=== PATIENT | male | born 1945 | race Caucasian/White ===

== ENCOUNTER → 2021-12-19 08:56 | Outpatient (BNVA) | payer BC, SELFPAY | PROVIDERS: PCP Family Medicine Adult Medicine; Visit Provider Family Medicine Adult Medicine | DX: N40.0 Benign prostatic hyperplasia without lower urinary tract symptoms (principal); R05.3 Chronic cough; R91.1 Solitary pulmonary nodule; N41.1 Chronic prostatitis; R31.9 Hematuria, unspecified; E29.1 Testicular hypofunction | CPT/HCPCS: 80053; 84153; 84403; 84443; 85025 ==

== ENCOUNTER 2022-02-20 12:48 | Outpatient (CLI) | payer BC, SELFPAY ==
--- NOTE | 2022-02-20 13:00 | CT_ITS ---
WS: [id number] CT CHEST WITH INTRAVENOUS CONTRAST HISTORY: History of RIGHT middle lobe atelectasis and pulmonary nodules. TECHNIQUE: Contiguous 5 mm axial imaging performed on the thorax. Coronal and sagittal reformats are submitted. All CT scans at [facility] use at least one of these dose optimization techniques: automated exposure control; mA and/or kV adjustment per patient size (includes targeted exams where dose is matched to clinical indication); or iterative reconstruction. CONTRAST: Omnipaque 350; 95 mL IV. DLP: 577.39 mGy.cm COMPARISON: None available. Prior outside imaging was requested. Lungs and central airway: Lungs are hyperinflated. Bilateral scattered opacifications. Opacifications are greatest throughout the RIGHT lung. Atelectasis with bronchiectasis medial RIGHT middle lobe and at the lingula. There are additional areas of tree-in-bud airspace disease and groundglass opacifica tions. There is no well formed solid mass. Pleural-based wedge-shaped opacification posterior RIGHT u pper lobe may be from a prior infarct. Pleura: Normal. No pleural effusion. Heart and pericardium: Heart is enlarged. No pericardial effusion. Mediastinum and jennifer: Indeterminate RIGHT suprahilar lymph node or cluster of lymph nodes measures 18 x 19 mm. There are additional smaller hilar lymph nodes. Vessels: Normal size aorta. No filling defects in the central pulmonary artery. Chest wall and lower neck: No soft tissue masses. Upper abdomen: No adrenal mass. Visualized liver is negative. Osseous structures: No destructive process. CT/CT chest w con* [id number] IMPRESSION: 1. Bilateral pulmonary opacifications. Probably all postinflammatory. Comparis on with prior outside imaging would be helpful to evaluate for progression or i mprovement. Bronchiectasis with atelectasis RIGHT middle lobe and lingula. 2. Mildly prominent RIGHT suprahilar lymph node or lymph node group measures 1 8 x 19 mm. 3. Emphysema, chronic. 4. Recommendation: Follow-up chest CT with IV contrast in 3 months. This inter suman follow-up may change if the outside imaging becomes available for review.
[2022-02-20 13:25] LABS: Blood Urea Nitrogen 19 mg/dL (8-23)
[2022-02-20] MEDS: iohexol 350 mg/mL 500 mL Btl (per mL) IV (13:30)
== END 2022-02-20 12:49 | disposition home or self-care (01) ==
LOC: RAD 12:50
PROVIDERS: PCP Family Medicine Adult Medicine; Visit Provider Family Medicine Adult Medicine
DX: R91.1 Solitary pulmonary nodule (principal); J43.9 Emphysema, unspecified; J98.11 Atelectasis
CPT/HCPCS: 71260; 82565; 84520; Q9967

== ENCOUNTER → 2022-03-28 10:33 | Outpatient (BNVA) | payer BC, SELFPAY | PROVIDERS: PCP Family Medicine Adult Medicine; Visit Provider Family Medicine Adult Medicine | DX: E03.9 Hypothyroidism, unspecified (principal) | CPT/HCPCS: 84443 ==

== ENCOUNTER 2022-04-01 10:17 | Outpatient (CLI) | payer BC, SELFPAY | END 2022-04-01 10:18 | disposition home or self-care (01) | LOC: LAB 10:19 | PROVIDERS: PCP Family Medicine Adult Medicine; Visit Provider Internal Medicine Pulmonary Disease | DX: J47.9 Bronchiectasis, uncomplicated (principal) | CPT/HCPCS: 87015; 87116; 87206; 87801 ==

== ENCOUNTER → 2022-06-27 10:30 | Outpatient (BNVA) | payer BC, SELFPAY | PROVIDERS: PCP Family Medicine Adult Medicine; Visit Provider Internal Medicine Pulmonary Disease | DX: J47.9 Bronchiectasis, uncomplicated (principal); R06.02 Shortness of breath | CPT/HCPCS: 36415; 80053; 82784; 82785; 85025; 86003; 86038; 86200; 86431; 86480 ==

== ENCOUNTER 2022-07-05 10:47 | Outpatient (CLI) | payer BC, SELFPAY ==
--- NOTE | 2022-07-05 11:00 | CT_ITS ---
WS: [id number] CT chest wo con [id number] REASON FOR EXAM: Bronchiectasis IV CONTRAST ADMINISTERED: None. TOTAL EXAM DLP: 185.[address] scans at [facility] use at least one of these dose optimization techniques: automat ed exposure control; mA and/or kV adjustment per patient size (includes targeted exams where dose is matched to clinical indication); or iterative reconstruction. FINDINGS: Atelectasis and bronchiectasis in the right middle lobe and within the lingular segment of the left l myke. The abnormality in the right middle lobe is relatively unchanged compared to 02/20/2022. On the left there is now an area of airspace consolidation in the extreme anterior medial aspect of t he left lung containing air bronchograms. There has also been, in the interim since 02/20/2022, some resolution of previously identified lung o pacities in the posterior upper lobes most notably on the right. Some residual abnormality remains. Without contrast reevaluation of the previously described right hilar and mediastinal adenopathy is s omewhat difficult but as best as can be ascertained the adenopathy is unchanged in volume. Multiple other chronic pulmonary parenchymal changes appear stable in both lungs. No other significant interval change or new finding. CT/CT chest wo con [id number] IMPRESSION: Stable bronchiectasis and atelectasis in the right middle lobe. New area of airspace consolidation in the mid extreme anterior medial left lung . Partial resolution of pulmonary opacities in the posterior upper lobes.
== END 2022-07-05 10:48 | disposition home or self-care (01) ==
PROVIDERS: PCP Family Medicine Adult Medicine; Visit Provider Internal Medicine Pulmonary Disease
DX: J47.9 Bronchiectasis, uncomplicated (principal)
CPT/HCPCS: 71250

== ENCOUNTER 2022-07-09 05:44 | Day surgery (SDC) | payer BC, SELFPAY ==
[2022-07-05 09:42] VITALS: BMI 20.2
[2022-07-09] VITALS (7 sets, daily range): BP systolic 111–129; BP diastolic 54–83; PULSE 67–85; RESP 16–18; TEMP 36.1–36.2; O2SAT 91–97
[2022-07-09] MEDS: sodium chloride 0.9% 1,000 ML 30 ML IV (06:16)
--- NOTE | 2022-07-09 06:56 | P.HPUD_ITS ---
Surgery/Procedure H&P Update DATE OF PROCEDURE: July 09, 2022 DATE H&P PERFORMED: 06/27/22 H&P UPDATE INFORMATION: I have reviewed H&P completed within last 30 days, I have examined patient prior to procedure and No changes to prior documentation PRIMARY INDICATION FOR PROCEDURE: Patient had follow-up CT chest 07/05/2022-which showed stable bronchiectasis under the ectasis in the right middle lobe. New area of airspace consolidation in mid extreme anterior medial left lung. Partial resolution of pulmonary opacities in posterior upper lobes. Probably unchanged right hilar and mediastinal adenopathy PLANNED PROCEDURE: Operation Date: 07/09/22 07:00 Proposed Procedures p Bronchoscopy/Ebus 12439, 68205, 76613, 86861, 99187, 56940, 81129, 31756, 31 645, 92117, 29271, 46518, 80168,J47.9,R91.1(Not Applicable) - Johny Albrecht MD s Ebus(Not Applicable) - Johny Albrecht MD
--- NOTE | 2022-07-09 06:59 | ANES.PREANE2 ---
Pre-Anesthetic Assessment Height/Weight: Height 1.75 m Weight 62.142 kg Temp Pulse Resp BP Pulse Ox O2 Del Method 97.0 F L 67 16 128/83 97 Room Air 07/09/22 06:02 07/09/22 06:02 07/09/22 06:02 07/09/22 06:02 07/09/22 06:02 07/09/22 06:02 Operation Date: 07/09/22 07:00 Proposed Procedures p Bronchoscopy/Ebus 22662, 93188, 67325, 05191, 60196, 13887, 65826, 93324, 08452, 17364, 70488, 67952, 62920,J47.9,R91.1(Not Applicable) - Johny Albrecht MD s Ebus(Not Applicable) - Johny Albrecht MD Familial anesthetic complications: none Was Beta Brianna taken within 24 hours: N/A Was Clonidine taken within 24 hours: N/A Last intake: Intake Last Liquid Date 07/08/22 Last Liquid Time 19:00 Last Solid Date 07/08/22 Last Solid Time 13:00 Social No alcohol and No tobacco Exam alert, oriented x 3, clear to auscultation bilaterally and regular rate & rhythm Airway Submandibular: within normal limits Cervical ROM: within normal limits Mallampati: Class I Dentition: full Pulmonary Chronic Obstructive Pulmonary Disease pulmonary nodule CV/HEM None reported None reported Hepatic None reported GI Gastroesophageal Reflux Disease controlled Metabolic None reported Musc/skel Lower Back Pain lumbar issues Neuropsych None reported Anesthetic Plan ASA status: 3 Anesthesia: General Risk of > 500 ml blood loss (7ml/kg in children): No Medications/Allergies Home Medications Medication Instructions Recorded Confirmed Last Taken Type biotin 1 tab PO DAILY 09/20/21 07/09/22 07/08/22 History cholecalciferol (vitamin D3) 1 tab PO DAILY 09/20/21 07/09/22 07/08/22 History eye health vitamins 1 tab PO BID 09/20/21 07/09/22 07/08/22 History multivitamin (Daily Multi-Vitamin 1 tab PO DAILY 09/20/21 07/09/22 07/08/22 History tablet) Allergies Allergy/AdvReac Type Severity Reaction Status Date / Time No Known Allergies Allergy Verified 07/09/22 06:00 Current Medications Generic Name Dose Route Start Last Admin Trade Name Freq PRN Reason Stop Dose Admin Sodium Chloride 1,000 mls @ 30 mls/hr 07/09/22 06:00 07/09/22 06:16 Sodium Chloride 0.9% IV 07/10/22 05:59 30 mls/hr .Q24H SUJIT Administration PFSH Anesthesia Medical History BPH (benign prostatic hyperplasia) now [facility], [place], Dx prostatic cancer 09/19/2018 but then changed to BPH, all biopsies negative. BPH loc w urin obs/LUTS now [facility], [place], Dx prostatic cancer 09/19/2018 but then changed to BPH, all biopsies negative. Carcinoma in situ of prostate Initial elevated PSA 2011 and an 05/2017 biopsy positive for prostate cancer after PSA elevation again, [place], [place] Chronic cough Chronic prostatitis with hematuria now [facility], [place], Dx prostatic cancer 09/19/2018 but then changed to BPH, all biopsies negative. Chronic rhinitis COPD mixed type Osteoarthritis involving multiple joints on both sides of body Pulmonary nodule on CT 01/2021 Dr. Paez order to repeat Chest CT on 05/22/2021. Right middle lobe with atelectasis and bronchial gram and radiographic findings compatible with mycobacteria AVM complex as well as a 15 mm right hilar node and some scheduled nodules up to 6 mm. Testicular hypogonadism Family History Sister Chronic kidney disease (CKD) Hyperlipidemia Mother Cancer colon Hyperlipidemia Stroke mini strokes Denies family history of Diabetes CAD (coronary artery disease) Clotting disorder Dementia Anesthesia complication Bleeding disorder Lung disease Hypertension Social History Smoking and tobacco status: former smoker Quit status (tobacco): has quit using tobacco Year quit tobacco: 1969 Former quit date comment: 1 ppd X 4 years Smoking risk assessment/counseling performed?: No Alcohol intake: never Desire information about alcohol rehabilitation?: No Counseling given: No Substance/Drug Use: never Desire information about substance/drug rehabilitation?: No Counseling given: No Adopted: No Caregiver/support person: No Lives independently: Yes Marital status: service: No Current occupational status: retired Do you think of yourself as: Straight/Heterosexual Current gender identity: Male Data Anesthesia Cardiac Studies: No Data to Display
[2022-07-09] MEDS: lidocaine 1% INJ 20 mL 10 ML XX (07:25)
--- NOTE | 2022-07-09 08:38 | PM.OP ---
Operative Report Date of procedure: July 09, 2022 Pre-op diagnosis: Bronchiectasis with hilar adenopathy Procedure done: 40642 Dx Bronchoscope w/BAL 03775 Bronchoscopy w/ therapeutic aspiration of the tracheobronchial tree (clearance of airway secretions, removal of mucus plugs) 95210 EBUS Sampling 1 or 2 nodes Surgeon: Johny Albrecht MD, [facility] Brief History: 76-year-old male presented with chronic cough to the clinic. CT evidence of significant right middle lobe bronchiectasis and airspace consolidation in mid extreme anterior medial left lung. Sputum cultures did not grow any atypical mycobacteria Today scheduled for bronchoscopic evaluation, obtaining BAL from bronchiectatic areas to send for cultures, endoscopic biopsy of hilar/mediastinal lymphadenopathy Procedure: 50074 Dx Bronchoscope w/BAL 69517 Bronchoscopy w/ therapeutic aspiration of the tracheobronchial tree (clearance of airway secretions, removal of mucus plugs) 70702 EBUS Sampling 1 or 2 nodes 55269 Diagnostic EBUS Indication: CT chest 07/05/2022-which showed stable bronchiectasis in the right middle lobe.? New area of airspace consolidation in mid extreme anterior medial left lung.? Partial resolution of pulmonary opacities in posterior upper lobes.There is also prominent right suprahilar lymph node or lymph node group measuring 18 x 19 mm.? Description of the procedure: The procedure was explained to the patient and the consent was obtained. The patient was brought to the OR. The patient underwent induction for general anesthesia and endotracheal tube was placed Anesthesia: General anesthesia. Local anesthesia: The elizabeth in the right and left mainstem bronchi were anesthetized with 1% lidocaine, 3 mL. The bronchoscope was advanced through the ET tube. The distal trachea was visualized. Tracheal mucosa appeared normal, no endotracheal lesion was seen. The elizabeth was sharp. 1 mL each of 1% lidocaine was instilled in the trachea the right and left mainstem bronchi for local anesthesia. In a systematic manner bilateral bronchial tree was then examined. The bronchoscope was then introduced into the right mainstem bronchus. The right upper lobe, right middle lobe and right lower lobe bronchi were examined up to the third subsegmental level and no abnormalities were identified. There was anatomic variance in the right upper lobe as well as right lower lobe segments. The mucosa appeared normal with no endobronchial lesions or active bleeding. There were significant thick mucus globs noted in bronchus intermedius and at the entrance of right middle lobe. There were suctioned right away ( 20700) The bronchoscope was advanced into the left mainstem bronchus. The mucosa appeared normal with no endobronchial lesions. The left upper lobe, and lingula were examined up to the third subsegmental level and no abnormalities were identified. Mucosa of left upper lobe and lingula appeared normal with no endobronchial lesion. There were thick mucus globs which were suctioned right away(88975). Bronchoalveolar lavage was taken from medial segment of right middle lobe as well as superior lingular segment of left upper lobe. Samples were placed in 2 separate specimen cups and sent for studies After making sure there is no overt bleeding from left mainstem bronchus, bronchoscope was retracted and endobronchial ultrasound (64168 ) was introduced. Identified a lymph nodes at station 11 R and station 7. Using [id number] were taken from all 2 lymph node stations (41443); touch preps from each lymph node stations were sent for KYREE. Pathology reported seeing benign cells. I made at least 3 passes from each site and rest of the tissue placed in separate formalin cups with appropriate labeling and sent for histopathology review. There was mild bleeding at the biopsy sites which was controlled with instillation of cold saline. After making sure there is no active bleeding, bronchoscope retracted and procedure terminated. Samples: 1. Bronchoalveolar lavage (31704) was performed after wedging the bronchoscope at the entrance of medial segment of right middle lobe. 45 mL of saline was instilled, fluid return was 20 mL. Bronchoalveolar lavage specimen was sent for cell count and differential, gram stain and culture Station, mycobacterial cultures 2. Bronchoalveolar lavage (23231) was performed after wedging the bronchoscope at the entrance of superior lingular left upper lobe. 20 mL of saline was instilled, fluid return was 10 mL. Bronchoalveolar lavage specimen was sent for gram stain and culture Station, mycobacterial cultures EBUS guided fine-needle aspiration of 2 lymph nodes: Station 11 R and station 7 C. Station 11 R: touch prep -pathology reported seeing benign cells; rest of the material were placed in formalin for histopathology. 1 pass was placed in sterile cup for tissue culture. D. Station 7: touch prep -pathology reported seeing benign; rest of the material were placed in formalin for histopathology Complications: None.The patient was extubated and brought to the PACU in stable condition. Disposition: Patient can be discharged home in stable condition. Pt and his are aware that I am going to call them to update final biopsy results once available. .
--- NOTE | 2022-07-09 09:07 | P.PCN_ITS ---
PACU note Narrative: VSS, Good respiratory effort, report to SPRING PRODUCTION SUPERVISOR Exam: awake
--- NOTE | 2022-07-09 09:07 | PM.PACU ---
PACU note Narrative: VSS, Good respiratory effort, report to PROTECTION ANALYST Exam: awake
[2022-07-09 10:18] LABS: Apprearance, Bronch Wash Cloudy (CLEAR); Color, Bronc Wash White; PATH Referral Yes
[2022-07-09 10:20] LABS: Cyto Order Verification No Order
[2022-07-09 12:05] LABS: Bronch Source Left Upper Lobe
[2022-07-09 12:07] LABS: Total Cells Counted Bronch 200
--- NOTE | 2022-07-09 14:53 | ANE.PACU2 ---
Inpatient post-anesthesia follow up: Airway intact: Yes Vital signs: Temperature 97.0 F Pulse Rate 75 Respiratory Rate 18 Blood Pressure 116/65 Pulse Oximetry 92 Oxygen Delivery Me thod Room Air Oxygen Flow Rate Fraction of Inspir ed Oxygen Hydration adequate: Yes Nausea and vomiting: No Pain level: 2 Mental status: Baseline
[2022-08-14 10:53] LABS: Miscellaneous Test SEE COMMENTS
[2022-08-14 10:54] LABS: Miscellaneous Test SEE COMMENTS
[2022-08-14 10:55] LABS: Miscellaneous Test SEE COMMENTS
== END 2022-07-09 09:37 | disposition home or self-care (01) ==
PROVIDERS: PCP Family Medicine Adult Medicine; Visit Provider Internal Medicine Pulmonary Disease
PROC: 0BJ08ZZ Inspection of Tracheobronchial Tree, Via Natural or Artificial Opening Endoscopic (ICD-10-PCS; CPT 31622; principal; 2022-07-09 07:00)
PROC: BB4BZZZ Ultrasonography of Pleura (ICD-10-PCS; 2022-07-09 07:00)
DX: J47.9 Bronchiectasis, uncomplicated (principal); R05.3 Chronic cough; Z87.891 Personal history of nicotine dependence; J98.11 Atelectasis; R06.02 Shortness of breath; R91.1 Solitary pulmonary nodule; K21.9 Gastro-esophageal reflux disease without esophagitis
CPT/HCPCS: 31624; 31645; 31652; 31654; 80503; 87015; 87070; 87116; 87176; 87205; 87206; 87801; 88305; 89050; J1100; J2405; J2704; J3010; J7030

== ENCOUNTER 2022-09-24 07:47 | Outpatient (CLI) | payer BC, SELFPAY ==
[2022-09-24 08:30] LABS: Alanine Aminotransferase 15 U/L (0-41); Albumin Level 4.5 g/dL (3.5-5.2); Alkaline Phosphatase 81 U/L (40-130); Anion Gap 15.4 (5-19); Aspartate Amino Transferase 23 U/L (0-40); Blood Urea Nitrogen 16 mg/dL (8-23); Calcium 9.3 mg/dL (8.5-10.5); Carbon Dioxide 25 mmol/L (22-29); Chloride 101 mmol/L (98-107); Globulin 2.3 g/dL (1.3-4.6); Glucose 84 mg/dL (65-115); Osmolality Calculated 284 mOsm/kg (285-295); Potassium 4.4 mmol/L (3.5-5.1); Sodium 137 mmol/L (136-145); Total Bilirubin 0.3 mg/dL (0.15-1.2); Total Protein 6.8 g/dL (6.6-8.7)
--- NOTE | 2022-09-24 08:30 | CT_ITS ---
WS: [id number] CT HEAD TECHNIQUE: Noncontrast CT of the head obtained from the skullbase to the vertex. CLINICAL INFORMATION: pt with nocardia in respiratory sputum COMPARISON: None. DLP: 991.[address] scans at [facility] use at least one of these dose optimization techniques: automated e xposure control; mA and/or kV adjustment per patient size (includes targeted exams where dose is matc hed to clinical indication); or iterative reconstruction. FINDINGS: No evidence of intracranial hemorrhage or mass effect. Ventricular system and basal cisterns are blakely nt. Mild small vessel changes with mild parenchymal volume loss. No extra-axial fluid collections. No evidence of mass or mass effect. Paranasal sinuses and mastoid air cells are well aerated. .Normal visualized soft tissues. CT/CT head wo con* [id number] IMPRESSION: 1. No evidence of intracranial hemorrhage or mass effect. 2. Mild small vessel changes. Mild parenchymal volume loss. 3. Intracranial vascular calcification. 4. No acute intracranial findings.
== END 2022-09-24 07:48 | disposition home or self-care (01) ==
LOC: RAD 07:54
PROVIDERS: Student in an Organized Health Care Education/Training Program; PCP Family Medicine Adult Medicine; Visit Provider Internal Medicine Pulmonary Disease
DX: J47.9 Bronchiectasis, uncomplicated (principal); A43.0 Pulmonary nocardiosis; G93.89 Other specified disorders of brain
CPT/HCPCS: 36415; 70450; 80053

== ENCOUNTER 2022-11-25 09:40 | Outpatient (CLI) | payer BC, SELFPAY ==
--- NOTE | 2022-11-25 10:00 | CT_ITS ---
WS: [id number] CT chest wo con [id number] HISTORY: 3 month f/u from starting [place], history of bronchiectasis. TECHNIQUE: Axial imaging performed through the thorax. Coronal and sagittal reformats are submitted. All CT scans at [facility] use at least one of these dose optimization techniques: automated exposure control; mA and/or kV adjustment per patient size (includes targeted exams where dose is mat ched to clinical indication); or iterative reconstruction. CONTRAST: None DLP: 248.93 mGy.cm COMPARISON: 07/05/2022 Lungs and central airway: Hyperinflated lungs with emphysema. Persistent bilateral opacifications thr oughout both lungs but greatest on the RIGHT. Overall moderate improvement since the prior study. Par tial atelectasis with bronchiectasis in the RIGHT middle lobe and lingula. No progression of the bron chiectasis. No dense areas of consolidation or mass. Pleura: Normal. No pleural effusion. Heart and pericardium: Mild deformity of the heart due to the mild pectus deformity of the chest. Parris y mild enlargement of the heart Mediastinum and jennifer: There are a few small mediastinal and hilar lymph nodes. Small axillary lymph n odes. Vessels: Mild atherosclerosis aorta. No aneurysm. Normal size pulmonary artery. Chest wall and lower neck: No soft tissue masses. Upper abdomen: Normal. Osseous structures: No destructive process. IMPRESSION: 1. Continued improvement of the bilateral pulmonary opacifications since 07/05/2022. These are probably postinflammatory. Most significant opacifications persist in the RIGHT lung. 2. Stable RIGHT middle and lingular bronchiectasis.
== END 2022-11-25 09:41 | disposition home or self-care (01) ==
PROVIDERS: PCP Family Medicine Adult Medicine; Visit Provider Internal Medicine Pulmonary Disease
DX: J44.9 Chronic obstructive pulmonary disease, unspecified (principal); J47.9 Bronchiectasis, uncomplicated
CPT/HCPCS: 71250

== ENCOUNTER → 2022-11-28 15:01 | Outpatient (BNVA) | payer BC, SELFPAY | PROVIDERS: PCP Family Medicine Adult Medicine; Visit Provider Student in an Organized Health Care Education/Training Program | DX: A43.0 Pulmonary nocardiosis (principal); J44.9 Chronic obstructive pulmonary disease, unspecified | CPT/HCPCS: 36415; 80053 ==

== ENCOUNTER → 2022-12-18 08:31 | Outpatient (BNVA) | payer BC, SELFPAY | PROVIDERS: PCP Family Medicine Adult Medicine; Visit Provider Family Medicine Adult Medicine | DX: M19.041 Primary osteoarthritis, right hand (principal); M19.042 Primary osteoarthritis, left hand; R76.8 Other specified abnormal immunological findings in serum | CPT/HCPCS: 86431; 86803 ==

== ENCOUNTER 2023-03-28 16:09 | Outpatient (CLI) | payer BC, SELFPAY ==
--- NOTE | 2023-03-28 16:30 | CT_ITS ---
WS: [id number] CT CHEST TECHNIQUE: Noncontrast CT of the chest with coronal and sagittal reformatted images. CLINICAL INFORMATION: follow up pulmonary nocardiosis COMPARISON: CT 11/25/2022 DLP: 277.[address] scans at [facility] use at least one of these dose optimization techniques: automated e xposure control; mA and/or kV adjustment per patient size (includes targeted exams where dose is matc hed to clinical indication); or iterative reconstruction. FINDINGS: Chronic advanced emphysematous changes. Stable RIGHT middle and lingular bronchiectasis. Areas of ple ural and parenchymal scarring with parenchymal fibrosis in the RIGHT upper lobe, RIGHT middle lobe, a nd RIGHT lower lobe are unchanged in appearance. No new suspicious pulmonary parenchymal opacities. Adrenal glands are normal. Tiny esophageal hiatal hernia. Pectus deformity. Mild cardiomegaly. No mediastinal or hilar lymphadenopathy. No axillary lymphadenopathy. Mild aortic calcification. IMPRESSION: 1. No significant changes since 11/25/2022 2. Chronic advanced emphysematous changes. 3. Stable bronchiectasis in the RIGHT middle lobe and lingula. 4. No new suspicious pulmonary parenchymal abnormalities.
== END 2023-03-28 16:10 | disposition home or self-care (01) ==
PROVIDERS: PCP Family Medicine Adult Medicine; Visit Provider Internal Medicine Pulmonary Disease
DX: A43.0 Pulmonary nocardiosis (principal); J43.9 Emphysema, unspecified; J47.9 Bronchiectasis, uncomplicated
CPT/HCPCS: 71250

== ENCOUNTER 2023-07-03 11:28 | Day surgery (SDC) | payer BC, SELFPAY ==
[2023-07-03 11:49] VITALS: BP 130/89; PULSE 77; RESP 18; TEMP 36.3; O2SAT 95; BMI 19.5
[2023-07-03] MEDS: sodium chloride 0.9% 1,000 ML 30 ML IV ×2 (11:59→13:36)
--- NOTE | 2023-07-03 12:44 | W.PM.OPSFHP ---
Same Day Surgery H&P Indication for Procedure/HPI DATE OF PROCEDURE: July 03, 2023 CHIEF COMPLAINT/INDICATIONFOR SURGICAL PROCEDURE: need for screening colonoscopy PREOP DIAGNOSIS: need for screening colonoscopy PLANNED PROCEDURE: Operation Date: 07/03/23 12:35 Proposed Procedures p 05278 colon G0121 screen colon A risk Z12.11(Not Applicable) - Bryon Donaldson MD Medications/Allergies* Home Medications Medication Instructions Recorded Confirmed Type biotin 1 tab PO DAILY 09/20/21 06/30/23 History cholecalciferol (vitamin D3) 1 tab PO DAILY 09/20/21 06/30/23 History eye health vitamins 2 tab PO BID 09/20/21 06/30/23 History acetylcarnitine 500 mg capsule 3,000 mg PO DAILY 09/05/22 06/30/23 History utaqdahz-qu-rgnqu 300 mcg-K 60 1 tab PO DAILY 09/05/22 06/30/23 History mcg-lycop 600 mcg-lutein 300 mcg tablet (Centrum Silver Men) saw palmetto 250 mg capsule 250 mg PO DAILY 09/05/22 06/30/23 History turmeric 500 mg-black pepper 1 cap PO DAILY 09/05/22 06/30/23 History extract 3 mg capsule Allergies/Adverse Reactions Allergy/AdvReac Type Severity Reaction Status Date / Time No Known Allergies Allergy Verified 06/30/23 09:58 Current Medications: Generic Name Dose Route Start Last Admin Trade Name Freq PRN Reason Stop Dose Admin Sodium Chloride 1,000 mls @ 30 mls/hr 07/03/23 07:15 07/03/23 11:59 Sodium Chloride 0.9% IV 07/04/23 07:14 30 mls/hr .Q24H SUJIT Administration Pertinent History/Comorbid Conditions* Medical History (Updated 01/15/23 @ 16:41 by Kane Whalen MD) FHx: colon cancer Mother had colon cancer, he has colonoscopy every 3 years. Osteoarthritis of hands, bilateral Rheumatoid factor positive BPH loc w urin obs/LUTS now [facility], [place], Dx prostatic cancer 09/19/2018 but then changed to BPH, all biopsies negative. 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 Family History (Updated 12/19/21 @ 08:10 by Ashley Lin LPN) Hyperlipidemia Sister Mother Chronic kidney disease (CKD) Sister Cancer Mother colon Stroke Mother mini strokes Denies family history of Diabetes CAD (coronary artery disease) Clotting disorder Dementia Anesthesia complication Bleeding disorder Lung disease Hypertension Social History Smoking and tobacco/nicotine status: former use of tobacco/nicotine Quit status (tobacco/nicotine): has quit using Year quit tobacco: 1969 Former quit date comment: 1 ppd X 4 years Alcohol intake: never Substance/Drug Use: never Adopted: No Caregiver/support person: No Lives independently: Yes Marital status: service: No Current occupational status: retired Do you think of yourself as: Straight/Heterosexual Current gender identity: Male Pertinent Exam Findings alert, oriented x 3, clear to auscultation bilaterally and regular rate & rhythm Recommendations Surgery/Procedure today Coding Level of Care Code Acute Code for Chg Fwd
--- NOTE | 2023-07-03 13:17 | P.ANESASSM_ITS ---
Pre-Anesthetic Assessment Height/Weight: Height 1.75 m Weight 59.874 kg Temp Pulse Resp BP Pulse Ox O2 Del Method 97.4 F L 77 18 130/89 95 Room Air 07/03/23 11:49 07/03/23 11:49 07/03/23 11:49 07/03/23 11:49 07/03/23 11:49 07/03/23 11:49 Preop Diagnosis: need for screening colonoscopy Operation Date: 07/03/23 12:35 Proposed Procedures p [id number] colon [id number] screen colon A risk Z12.11(Not Applicable) - Bryon Donaldson MD Familial anesthetic complications: none Was Beta Brianna taken within 24 hours: N/A Was Clonidine taken within 24 hours: N/A Last intake: Intake Last Liquid Date 07/02/23 Last Liquid Time 23:00 Last Solid Date 06/30/23 Last Solid Time 17:00 Social No alcohol and No tobacco Exam alert and oriented x 3 Airway Submandibular: within normal limits Cervical ROM: within normal limits Mallampati: Class II Dentition: full History/ROS No significant complaints Anesthetic Plan ASA status: 1 Anesthesia: Anesthesia Evaluation, General and MAC Medications/Allergies Home Medications Medication Instructions Recorded Confirmed Last Taken Type biotin 1 tab PO DAILY 09/20/21 06/30/23 06/29/23 History cholecalciferol (vitamin D3) 1 tab PO DAILY 09/20/21 06/30/23 06/29/23 History eye health vitamins 2 tab PO BID 09/20/21 06/30/23 06/30/23 History acetylcarnitine 500 mg capsule 3,000 mg PO DAILY 09/05/22 06/30/23 06/30/23 History [id number] 300 mcg-K 60 1 tab PO DAILY 09/05/22 06/30/23 06/30/23 History mcg-lycop 600 mcg-lutein 300 mcg tablet (Centrum Silver Men) saw palmetto 250 mg capsule 250 mg PO DAILY 09/05/22 06/30/23 06/29/23 History turmeric 500 mg-black pepper 1 cap PO DAILY 09/05/22 06/30/23 06/30/23 History extract 3 mg capsule Allergies Allergy/AdvReac Type Severity Reaction Status Date / Time No Known Allergies Allergy Verified 06/30/23 09:58 Current Medications Generic Name Dose Route Start Last Admin Trade Name Freq PRN Reason Stop Dose Admin Sodium Chloride 1,000 mls @ 30 mls/hr 07/03/23 07:15 07/03/23 11:59 Sodium Chloride 0.9% IV 07/04/23 07:14 30 mls/hr .Q24H SUJIT Administration PFSH Anesthesia Medical History FHx: colon cancer Mother had colon cancer, he has colonoscopy every 3 years. Osteoarthritis of hands, bilateral Rheumatoid factor positive BPH loc w urin obs/LUTS now [facility], [place], Dx prostatic cancer 09/19/2018 but then changed to BPH, all biopsies negative. COPD mixed type Osteoarthritis involving multiple joints on both sides of body Chronic prostatitis with hematuria now [facility], [place], Dx prostatic cancer 09/19/2018 but then changed to BPH, all biopsies negative. 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 Family History Sister Chronic kidney disease (CKD) Hyperlipidemia Mother Cancer colon Hyperlipidemia Stroke mini strokes Denies family history of Diabetes CAD (coronary artery disease) Clotting disorder Dementia Anesthesia complication Bleeding disorder Lung disease Hypertension Social History Smoking and tobacco/nicotine status: former use of tobacco/nicotine Quit status (tobacco/nicotine): has quit using Year quit tobacco: 1970 Former quit date comment: 1 ppd X 4 years Alcohol intake: never Substance/Drug Use: never Adopted: No Caregiver/support person: No Lives independently: Yes Marital status: service: No Current occupational status: retired Do you think of yourself as: Straight/Heterosexual Current gender identity: Male Data Anesthesia Cardiac Studies: No Data to Display
[2023-07-03 13:58] VITALS: BP 88/59; PULSE 81; RESP 16; TEMP 36.2; O2SAT 98
--- NOTE | 2023-07-03 14:08 | ANE.PACU2 ---
Inpatient post-anesthesia follow up: Airway intact: Yes Vital signs: Temperature 97.1 F Pulse Rate 81 Respiratory Rate 16 Blood Pressure 88/59 Pulse Oximetry 98 Oxygen Delivery Me thod Room Air Oxygen Flow Rate Fraction of Inspir ed Oxygen Hydration adequate: Yes Nausea and vomiting: No Pain level: 1 Mental status: Baseline
[2023-07-03 14:11] VITALS: BP 109/65; PULSE 66; RESP 18; O2SAT 98
== END 2023-07-03 14:28 | disposition home or self-care (01) ==
PROVIDERS: PCP Family Medicine Adult Medicine; Visit Provider Surgery
PROC: 0DJD8ZZ Inspection of Lower Intestinal Tract, Via Natural or Artificial Opening Endoscopic (ICD-10-PCS; CPT 45378; principal; 2023-07-03 12:35)
DX: Z12.11 Encounter for screening for malignant neoplasm of colon (principal); D12.8 Benign neoplasm of rectum; N40.1 Benign prostatic hyperplasia with lower urinary tract symptoms; N13.8 Other obstructive and reflux uropathy; J44.9 Chronic obstructive pulmonary disease, unspecified; Z87.891 Personal history of nicotine dependence; Z80.0 Family history of malignant neoplasm of digestive organs
CPT/HCPCS: 45380; 88305; J2704; J7030

== ENCOUNTER 2023-08-14 14:20 | Outpatient (CLI) | payer BC, MEDICARE, SELFPAY | END 2023-08-14 14:21 | disposition home or self-care (01) | PROVIDERS: PCP Family Medicine Adult Medicine; Visit Provider Family Medicine | DX: Z12.5 Encounter for screening for malignant neoplasm of prostate (principal) | CPT/HCPCS: 36415; 84153 ==

== ENCOUNTER → 2024-08-18 11:34 | Outpatient (BNVA) | payer BC, MEDICARE, SELFPAY | PROVIDERS: PCP Family Medicine; Visit Provider Family Medicine | DX: Z00.00 Encounter for general adult medical examination without abnormal findings (principal); N40.1 Benign prostatic hyperplasia with lower urinary tract symptoms; R76.8 Other specified abnormal immunological findings in serum | CPT/HCPCS: 80053; 80061; 81000; 84443; 85025; 86431 ==

== ENCOUNTER → 2024-09-14 08:30 | Outpatient (BNVA) | payer BC, MEDICARE, SELFPAY | PROVIDERS: PCP Family Medicine; Visit Provider Family Medicine | DX: Z12.5 Encounter for screening for malignant neoplasm of prostate (principal) | CPT/HCPCS: G0103 ==